=== PATIENT | male | born 1985 | race Caucasian/White ===

== ENCOUNTER 2020-07-24 12:02 | Day surgery (SDC) | payer OTHER ==
[2020-07-22 13:14] LABS: COVID AG,FIA SOURCE NASOPHARYNGEAL
[~2020-07-24] VITALS: Ht 175.3 cm; Wt 100.0 kg
[~2020-07-24 12:02] MED LIST: SODIUM CHLORIDE 0.9% 1,000 ML ONE
[2020-07-24] MEDS ORDERED: GLYCOPYRROLATE 0.2 MG/ML VIAL IM ONE (12:03)
[2020-07-24] MEDS ORDERED: PROPOFOL 1% 20 ML VIAL IVP ONE (12:03)
[2020-07-24] MEDS ORDERED: LIDOCAINE/PF 2% 5 ML SYRINGE IVP ONE (12:03)
[2020-07-24] MEDS ORDERED: SODIUM CHLORIDE 0.9% 1,000 ML IV ONE (12:30)
== END 2020-07-24 15:40 | disposition home or self-care (01) ==
LOC: SURGERY 12:02
PROVIDERS: ATTEND Internal Medicine Gastroenterology
DX: K22.2 Esophageal obstruction (principal); K21.00 Gastro-esophageal reflux disease with esophagitis, without bleeding; Z72.89 Other problems related to lifestyle; Z79.899 Other long term (current) drug therapy
CPT/HCPCS: 43239; 43249; 87426; C1769; C9803; J2704; J3490 ×2; J7030; 88305; 88312; 88313